=== PATIENT | male | born 1970 | race Caucasian/White ===

== ENCOUNTER 2023-07-23 18:16 | Emergency (ER) | payer OTHER, SELFPAY ==
[2023-07-23 18:21] VITALS: BP 163/106
[2023-07-23 19:26] VITALS: BMI 30.1
--- NOTE | 2023-07-23 19:26 | ED.GENMED ---
History of Present Illness
General
Chief Complaint: Blood Pressure Problem
Source: patient
Time Seen by Provider: 07/23/23 19:11
Travel History
Have you had any contact with someone who has COVID-19?: No
Do you have any symptoms of coronavirus? Fever > 100 degrees, chills, cough, shortness of breath, sore throat, loss of taste or smell, muscle aches, or headache?: No
History of Present Illness
History of Present Illness:
53-year-old male presents to the emergency room complaining of feeling dizzy, weaker than he expects to be. Patient also noted his blood pressure was somewhat elevated today in the 150s to 160s systolic. Patient was seen here in the emergency room
for similar symptoms in addition to some chest discomfort and belching 10 days ago. He had a negative workup at that time. He was recommended follow-up with his primary care provider which she does have scheduled in the coming days. However he
was monitoring his blood pressure at home and it was mostly in the low 120s. However the past 2 days blood pressure has been elevated and the dizziness is more prominent. Patient does endorse stress in his family. He denies any chest pain or
shortness of breath over the past couple days. He was able to jog for 20 minutes today. He felt tired and his legs are sore afterwards but no particular chest pain. Patient also has a sense of not feeling full when he eats and was having a sense
of hunger. Disease does not seem to be positional. Does not sound to be vertiginous
Phy Exam
Physical Exam
Physical Exam:
General: Awake, Alert, Oriented X3. No acute distress.
Vitals: unremarkable
Head: Atraumatic
Eyes: Pupils equal, EOMI
Throat: Airway intact, no exudates
Neck: Trachea midline
Lungs: Clear and equal b/l
Heart: Regular rate, no murmurs
Abd: Soft, Nontender, No pulsatile mass
Neuro: Nonfocal
Skin: Warm, dry, no rash
Extremities: pulses equal b/l, no edema
Course
Orders/Labs/Results
Orders:
Orders
07/23/23 19:26
Electrocardiogram (*1) Urgent
Reason for Study: Vertigo / Dizzy
Cardiac Monitoring- Treatment ONCE
EKG- Treatment ONCE
07/23/23 19:43
Basic Metabolic Panel Urgent
Complete Blood Count/With Diff Urgent
TSH Reflex To Free T4 Urgent
Abnormal Lab Results
07/23/23
19:43
Glucose 107 H mg/dl
(70-99)
07/23/23 19:43
07/23/23 19:43
Vital Signs
Initial and Last Documented VS:
Initial Vital Signs
Temp Pulse Resp BP Pulse Ox
97.6 F 80 18 163/106 95
07/23/23 18:21 07/23/23 18:21 07/23/23 18:21 07/23/23 18:21 07/23/23 18:21
Last Documented Vital Signs
Temp Pulse Resp BP Pulse Ox
97.6 F 78 14 119/84 95
07/23/23 18:21 07/23/23 21:00 07/23/23 21:00 07/23/23 21:00 07/23/23 18:21
MDM/Problems Addressed
Differential Diagnosis Includes:
Hypertension, electrolyte abnormality,
MDM/Problems Addressed:
labs normal. BP improved. Stable for discharge home
*EKG
Interpreted by ED Provider?: Yes
Interpretation: normal
Heart Rate: 73
Rate: normal
Rhythm: sinus
[place]: normal axis
Interval: normal interval
QRS Pattern: normal QRS
Ischemia: no ischemia
*Community Service Director Interpretation
Rate: normal
Interpretation: normal
Rhythm: sinus
*Critical Care Note
Total Time (30-74mins, 75-104mins- exclusive of procedures): Not Applicable
ED Attending Note
-
Portions of this chart may have been created with voice recognition software.� Occasional wrong word or��sound alike� substitutions may have occurred due to the inherent limitations of voice recognition software.
Discharge Plan
Departure
Patient Disposition: Home (Routine Discharge)
Date of Disposition: 07/23/23
Time of Disposition: 20:57
Patient with high blood pressure during this ER visit?: Yes
Condition: Good
Discharge Problem:
Dizziness
Instructions: High Blood Pressure (DC)
Referrals:
Natan Smith MD [Family Provider] -
Interventions
Interventions:
*Risk Screen - Suicide Last Done: 07/23/23 19:57
*General Assessment Last Done: 07/23/23 19:53
*Neglect/Abuse Screening Last Done: 07/23/23 19:57
*ED COVID-19 Vaccine History Last Done: 07/23/23 21:24
*Nursing Disposition Last Done: 07/23/23 21:24
ED- Cardiac Assessment Last Done: 07/23/23 19:57
ED- Neurological Assessment Last Done: 07/23/23 19:57
ED- Pulmonary Assessment Last Done: 07/23/23 19:57
Discharge Date and Time
Discharge Date/Time: 07/23/23 21:26
[2023-07-23 19:50] VITALS: BP 130/104
[2023-07-23 20:00] VITALS: BP 124/99
[2023-07-23 20:04] LABS: % Basophils 0.9 % (0-2); % Eosinophils 3.8 % (0-6); % Immature Granulocytes 0.2 % (0-0.5); % Lymphocytes 38.1 % (20.5-51.1); % Monocytes 8.5 % (1.7-9.3); % Neutrophils 48.5 % (42.2-75.2); Absolute Basophils 0.1 10^3/uL (0-0.2); Absolute Eosinophils 0.2 10^3/uL (0-0.7); Absolute Lymphocytes 2.1 10^3/uL (1.2-3.4); Absolute Monocytes 0.5 10^3/uL (0.1-0.6); Absolute Neutrophils 2.7 10^3/uL (1.4-6.5); Hematocrit 41.8 % (39.0-52.0); Hemoglobin 15.3 g/dL (13.0-18.0); Mean Corp Hgb Conc. 36.6 g/dL (33.0-37.0); Mean Corpuscular Hgb 30.5 pg (27.0-31.0); Mean Corpuscular Volume 83.3 fL (80.0-94.0); Mean Platelet Volume 9.3 fL (7.4-10.4); Nucleated Red Blood Cells % 0 % (-); Platelet Count 247 10^3/uL (130-400); Red Blood Cell Count 5.02 10^6/uL (4.70-6.10); Red Cell Dist. Width 12.6 % (11.5-14.5); White Blood Cell Count 5.6 10^3/uL (4.8-10.8)
[2023-07-23 20:16] LABS: Blood Urea Nitrogen 19 mg/dl (9-20); Calcium 9.2 mg/dl (8.4-10.2); Carbon Dioxide 25 mmol/L (22-30); Chloride 101 mmol/L (98-107); Estimated Creatinine Clearance 103 ml/min; Glucose 107 mg/dl (70-99); Potassium 3.6 mmol/L (3.5-5.1); Sodium 137 mmol/L (135-145); eGFR > 60.00
[2023-07-23 20:53] LABS: TSH Reflex To Free T4 2.21 uIU/ml (0.47-4.68)
[2023-07-23 21:00] VITALS: BP 119/84
== END 2023-07-23 21:26 | disposition home or self-care (01) ==
LOC: EMR 18:16
PROVIDERS: EMERGENCY PHYSICIAN Emergency Medicine; FAMILY PHYSICIAN Internal Medicine
DX: R42 Dizziness and giddiness (principal); R03.0 Elevated blood-pressure reading, without diagnosis of hypertension
CPT/HCPCS: 99284; 80048; 84443; 85025; 93005

== ENCOUNTER 2025-03-14 08:40 | Emergency (ER) | payer OTHER, SELFPAY ==
[2025-03-14 08:45] VITALS: BP 117/86
--- NOTE | 2025-03-14 09:39 | ED.GENMED ---
History of Present Illness
General
Chief Complaint: Musculo-Skeletal Complaint
Source: patient
Exam Limitations: none
Time Seen by Provider: 03/14/25 09:10
Nursing documentation reviewed up to this point in time: agreed with
History of Present Illness
History of Present Illness:
see MDM
Review of Systems
Review of Systems
Allergies reviewed?: Yes
All Other Systems: Not applicable
Phy Exam
Physical Exam
Physical Exam:
see MDM
Course
Orders/Labs/Results
Orders:
Orders
03/14/25 08:54
Foot, Right 3 View [CR Foot - Right Min 3 Views] Urgent
Comment:
Reason For Exam: swelling
03/14/25 09:38
Bedside Glucose- Treatment ONCE
Vital Signs
Initial and Last Documented VS:
Initial Vital Signs
Temp Pulse Resp BP Pulse Ox
36.7 C 72 18 117/86 98
03/14/25 08:45 03/14/25 08:45 03/14/25 08:45 03/14/25 08:45 03/14/25 08:45
Last Documented Vital Signs
Temp Pulse Resp BP Pulse Ox
36.7 C 72 18 117/86 98
03/14/25 08:45 03/14/25 08:45 03/14/25 08:45 03/14/25 08:45 03/14/25 09:40
MDM/Problems Addressed
Differential Diagnosis Includes:
see MDM
MDM/Problems Addressed:
Note:
CHIEF COMPLAINT(S)
Swelling and discomfort in the foot.
HISTORY OF PRESENT ILLNESS
The patient is a 54-year-old male who presents with atraumatic R foot pain onset yetsterday after walking barefoot.
pt has actually had swelling nad pain to b/l plantar feet (started in L foot) a few months ago and went to and thought it was maybe plantar fascitiis. he ended up having resolution of jimbo tfoot pain/swelling but then it began in the R foot as
well
more like the midfoot region
sometimes burning and sometimes itchiness
no skin changes
he has tried hard soled shoes, not wearing flip flops hwich is usually what he wore on feet
and he has been symptom free until yesterday when he got up without shoes on and walked 10 feet to answer the door. he felt some pain start then but it is mild
woke up today with more swelling susannah entire foot and into his ankle
again no warmth ,redness, and no significant pain
he has normal temperature
no other joitn swellings
no h/o gout
no h/o alcohol use
no calf pain/swleling an dno recent long travel.
The patient mentioned a previous visit to urgent care, where some swelling was noted, but he does not recall prior swelling in the current affected area. He has a family history significant for Raynauds disease in a sibling and thrombotic
thrombocytopenic purpura in his mother. He denies systemic symptoms such as fever, chest pain, or shortness of breath, and there are no associated skin changes like rashes or redness.
PAST MEDICAL HISTORY
The patient indicates a previous designation as 'prediabetic' with an HbA1c of 5.7-6.1. He has made dietary modifications resulting in weight loss and improved glycemic control.
CHRONIC MEDICAL CONDITIONS SIGNIFICANTLY AFFECTING CARE
Possibly prediabetes, previously indicated by an HbA1c of 5.7-6.1.
SOCIAL HISTORY
The patient mentioned making lifestyle changes by cutting carbohydrates to improve glycemic control and weight management.
MEDICATIONS
Amlodipine is the only chronic medication mentioned.
PHYSICAL EXAM
GENERAL: Alert , in no apparent distress, comfortable at rest
HEAD: NCAT
CV: 2+ DP PULSES B/L
NEUROLOGICAL: Alert and oriented, no focal neuro deficits, , 5/5 strength, sensation intact, able to walk fairly steadily
SKIN: Warm and dry, no skin changes
MUSCULOSKELETAL: Moderate right ankle and right foot swelling without erythema or warmth, normal pulse, cap refill intact, really no specific tenderness including the insertion point of the plantar fascia, full range of motion without any discomfort
in the ankle, no calf tenderness, negative Homans' sign
PSYCH: Normal and appropriate interaction.
- Nursing notes reviewed and vital signs reviewed.
PROBLEM LIST
Acute:
- Intermittent swelling and discomfort in the foot with a burning sensation.
Chronic:
- Prediabetes
PLAN
1. Initiate treatment with meloxicam for a few days as a stronger anti-inflammatory agent.
2. Referral to orthopedic or primary care physician for further evaluation and potential investigation into autoimmune causes.
3. Recommendation to avoid walking barefoot and consider using hard-soled shoes, possibly exploring bracing at night if plantar fasciitis is suspected.
4. Advise monitoring symptoms and return if swelling progresses or becomes associated with calf pain.
DIFFERENTIAL DIAGNOSIS
The Differential Diagnosis includes, in no particular order and is not limited to:
- Plantar fasciitis
- Tendonitis
- Autoimmune-related arthritis
- Osteoarthritis
- Gout
- Medication-induced edema (secondary to amlodipine)
- Peripheral neuropathy
- Soft tissue injury or strain
- Deep vein thrombosis (though unlikely)
- Infection (cellulitis, though not suspected)
54 y/o M
R foot swelling with mild pain
intermittent swelling both feet
more plantar symptoms than not
no skin changes
nv intact
diffuse mild swelling foot
no signs gout
normal pulse
xray indep reviewed, neg
pt doesn't really having classic history for plantar fascitiis
but he had gotten better with hard soled shoe
with b/l involvement, recommend RA/autoimmune work up
had recent outpatitent labs normal cr
accucheck normal
nathalie wrap
hard sole shoes
foot/ankle f/u
*Pulse Oximetry
SaO2: 98
Oxygen Mode of Delivery: Room air
Patient hypoxic: no (98)
*Critical Care Note
Total Time (30-74mins, 75-104mins- exclusive of procedures): Not Applicable
ED Attending Note
-
Portions of this chart may have been created with voice recognition software.� Occasional wrong word or��sound alike� substitutions may have occurred due to the inherent limitations of voice recognition software.
Discharge Plan
Departure
Patient Disposition: Home (Routine Discharge)
Date of Disposition: 03/14/25
Time of Disposition: 09:51
Patient with high blood pressure during this ER visit?: No
Condition: Fair
Discharge Problem:
Foot swelling, Plantar fasciitis
Instructions: Plantar fasciitis
Prescriptions:
New
meloxicam 15 mg tablet
15 mg PO DAILY Qty: 7 0RF
Referrals:
César Carlos MD [Family Provider, Family Practice]
Dylan Villasenor DPM [Active, Podiatry] - Follow up in 5-7 days
Stand Alone Forms: Return to Work
Activity Restrictions/Additional Instructions:
YOUR XRAY WAS NEGATIVE
YOU COULD HAVE PLANTAR FASCIITIS OR THIS COULD BE TENDINITIS
YOU SHOULD TRY TO ELEVATE YOUR FOOT THE NEXT FEW DAYS WHILE SEATED
WEAR HARD SOLED SHOE
USE A PLANTAR FASCIITIS BRACE AT NIGHT
INSTEAD OF IBUPROFEN TRY MELOXICAM 15 MG ONCE A DAY FOR 5-7 DAYS WITH FOOD
FOLLOW UP WITH YOUR FAMILY DOCTOR WE[facility] FO[facility] AND ANKLE SPECIALIST
YOU MAY NEED MORE TESTING
RETURN FOR: SWELLING PROGRESSING UP YOUR LEG, FEVER, REDNESS, WARMTH, INABIILTY TO WALK OR ANY CONCERNS
Interventions
Interventions:
*Risk Screen - Suicide Last Done: 03/14/25 08:45
*General Assessment Last Done: 03/14/25 08:45
*Neglect/Abuse Screening Last Done: 03/14/25 08:45
*Nursing Disposition Last Done: 03/14/25 10:08
ED-Musculoskeletal Assessment Last Done: 03/14/25 09:45
Discharge Date and Time
Discharge Date/Time: 03/14/25 10:09
Print Language: MACANESE
[2025-03-14 09:44] LABS: Glucose - Point of Care 99 mg/dl (70-99)
== END 2025-03-14 10:09 | disposition home or self-care (01) ==
LOC: EMR 08:40
PROVIDERS: EMERGENCY PHYSICIAN Emergency Medicine; FAMILY PHYSICIAN Family Medicine
DX: R22.41 Localized swelling, mass and lump, right lower limb (principal); M72.2 Plantar fascial fibromatosis; R73.03 Prediabetes
CPT/HCPCS: 99284; 73630; 82962